=== PATIENT | female | born 1960 | race Hispanic/Latino ===

== ENCOUNTER 2018-01-28 09:52 | Outpatient (CLI) | payer MEDICARE | END 2018-01-28 09:53 | disposition home or self-care (01) | LOC: BICULT 09:52 | PROVIDERS: ATTEND Family Medicine | DX: Z12.31 Encounter for screening mammogram for malignant neoplasm of breast (principal); Z01.419 Encounter for gynecological examination (general) (routine) without abnormal findings; N94.9 Unspecified condition associated with female genital organs and menstrual cycle; N85.2 Hypertrophy of uterus; R92.1 Mammographic calcification found on diagnostic imaging of breast | CPT/HCPCS: 76856; 77063; 77067 ==

== ENCOUNTER 2018-02-26 13:07 | Outpatient (CLI) | payer MEDICARE | END 2018-02-26 13:08 | disposition home or self-care (01) | LOC: BICMAMMO 13:07 | PROVIDERS: ATTEND Family Medicine | DX: R92.8 Other abnormal and inconclusive findings on diagnostic imaging of breast (principal); R92.1 Mammographic calcification found on diagnostic imaging of breast | CPT/HCPCS: 77065; G0279 ==

== ENCOUNTER 2018-03-03 14:12 | Outpatient (CLI) | payer MEDICARE | END 2018-03-03 14:13 | disposition home or self-care (01) | LOC: BICULT 14:12 | PROVIDERS: ATTEND Family Medicine | DX: N63.31 Unspecified lump in axillary tail of the right breast (principal); M79.621 Pain in right upper arm | CPT/HCPCS: 76999 ==

== ENCOUNTER → 2018-03-04 | Day surgery (SDC) | payer MEDICARE ==
--- NOTE | 2018-03-04 10:42 | MMO ---
RIGHT BREAST STEREOTACTIC BIOPSY: Date: 03/04/18 HISTORY: Right breast calcifications. COMPARISON: 03/04/18. FINDINGS: Successful right breast stereotactic biopsy. Calcifications are present in the sample. Post biopsy cl ip was placed and is in appropriate position. TECHNIQUE: Consent obtained to perform a right breast stereotactic biopsy. Patient was placed in prone position on the stereotactic biopsy table. Right breast was evaluated and the calcifications were identified. Skin was prepped and draped in the sterile fashion. 1% lidocaine, buffered with sodium bicarbonate, w as used for local anesthesia. Through a small dermatotomy, the needle position was confirmed with reg ards to the calcifications. Needle position was confirmed before and after firing. Stereotactic biops y was performed. A total of six 10 gauge core biopsy samples were obtained. Specimen was radiographed . Calcifications were present. Biopsy clip was placed. Clip was confirmed to be outside of the needle . Postprocedure mammogram demonstrates post biopsy changes in the right breast. Clip is appropriately located. The previously noted calcifications are less evident. IMPRESSION: Technically successful right breast stereotactic biopsy. POS: [id number]
== END ==
LOC: MAMMO 07:04
PROVIDERS: ATTEND Family Medicine
PROC: 0HBT3ZX Excision of Right Breast, Percutaneous Approach, Diagnostic (ICD-10-PCS; principal; 2018-03-04)
DX: N60.11 Diffuse cystic mastopathy of right breast (principal)
CPT/HCPCS: 19081; 76098; 88305

== ENCOUNTER 2020-12-31 09:23 | Outpatient (CLI) | payer MEDICARE | END 2020-12-31 09:24 | disposition home or self-care (01) | LOC: BICMAMMO 09:23 | PROVIDERS: ATTEND Family Medicine | DX: Z12.31 Encounter for screening mammogram for malignant neoplasm of breast (principal); Z13.820 Encounter for screening for osteoporosis; Z78.0 Asymptomatic menopausal state | CPT/HCPCS: 77063; 77067; 77080 ==

== ENCOUNTER 2021-02-20 08:25 | Outpatient (CLI) | payer MEDICARE | END 2021-02-20 08:26 | disposition home or self-care (01) | LOC: BICULT 08:25 | PROVIDERS: ATTEND Family Medicine | DX: N88.8 Other specified noninflammatory disorders of cervix uteri (principal) | CPT/HCPCS: 76856 ==

== ENCOUNTER 2024-02-19 07:01 | Outpatient (CLI) | payer MEDICARE | END 2024-02-19 07:02 | disposition home or self-care (01) | LOC: BICULT 07:01 | PROVIDERS: ATTEND Registered Nurse | DX: M79.605 Pain in left leg (principal) ==

== ENCOUNTER 2025-05-13 13:10 | Emergency (ER) | payer MEDICARE ==
[2025-05-13 14:22] LABS: CAUTI Indications for Culture Dysuria,urgency,freq; Glucose, Urine (Dipstick) 150 mg/dL (Negative); Leukocyte 250 Leu/uL (Negative); Protein, Urine (Dipstick) Negative (Neg-Trace); RBC/HPF 0-3 HPF (0-3); Specific Gravity, Urine 1.021 (1.002-1.036); WBC/HPF Greater than 50 HPF (0-3)
[2025-05-13] MEDS ORDERED: HYDROcodone/Acetaminophen 10/325 mg Tablet ONE (14:27)
[2025-05-13 14:35] LABS: Bacteria/HPF 4+ HPF (None Seen); Yeast-Budding Rare HPF (None Seen)
[2025-05-13 14:36] LABS: Urine Culture Reflex Yes Yes
== END 2025-05-13 15:21 | disposition home or self-care (01) ==
LOC: ERS 13:10
DX: N10 Acute pyelonephritis (principal); E11.9 Type 2 diabetes mellitus without complications; E78.5 Hyperlipidemia, unspecified; I10 Essential (primary) hypertension; Z55.6 Problems related to health literacy
CPT/HCPCS: 81001; 87077; 87086; 87186; 99283